=== PATIENT | female | born 1950 | race Caucasian/White ===

== ENCOUNTER 2021-06-07 05:42 | Day surgery (SDCO) | payer MEDICARE, OTHER ==
[~2021-06-07] VITALS: Ht 158.8 cm; Wt 86.2 kg
[~2021-06-07 05:42] MED LIST: ACETAMINOPHEN500 M1 PO; AMBIEN5 MG PO; APPLE CIDER VI500 MG PO; CLARITIN10 MG PO; MOTRIN600 MG PO; MYSOLINE50 MG PO; NUCYNTA50 MG PO; PEPCID AC20 MG PO; PRIMIDONE50 MG PO; PROBIOTIC1 EAC2 PO; PROPRANOLOL HCL60 MG PO; PROZAC20 MG PO; VITAMIN D5000 UNIT PO; VOLTAREN100 GM TOP; XARELTO10 MG PO; [UNRECOGNIZED DRUG - OTHER]
[2021-06-08 07:24] LABS: BASOPHIL 0.1 % (0-2); EOSINOPHIL 0.1 % (0-7); HCT 28.3 % (37.0-47.0); HGB 9.3 g/dl (12.5-16.0); LYMPHOCYTE 18.9 % (15-48); MCHC 32.9 g/dL (32.0-36.0); MCV 94.3 fL (78.0-100.0); MPV 11.5 fL (6.0-9.5); NEUTROPHIL 69.6 % (41-80); NRBC 0; PLT 225 K/uL (150-400); RDW 13.2 % (11.5-14.0); WBC 8.9 K/uL (4.0-10.5)
[2021-06-08 07:44] LABS: BUN/CREAT RATIO (CALC) 15.7 RATIO; CREATININE 0.89 mg/dL (0.51-0.95); POTASSIUM 4.2 mmol/L (3.5-5.1)
[2021-06-08] MEDS ORDERED: XARELTO10 MG PO (09:19)
[2021-06-08] MEDS ORDERED: STIMULANT LAXA1 EACH PO (09:19)
[2021-06-08] MEDS ORDERED: TAB-A-VITE TA400 MC1 PO (09:19)
[2021-06-08] MEDS ORDERED: MILK OF MA400 MG/5 M PO (09:19)
[2021-06-08] MEDS ORDERED: FEOSOL325 MG PO (09:19)
[2021-06-08] MEDS ORDERED: DULCOLAX5 MG PO (09:19)
[2021-06-08] MEDS ORDERED: PANTOPRAZOLE SO40 MG PO (09:19)
[2021-06-08] MEDS ORDERED: LAXATIVE SUPPOS10 MG PR (09:19)
--- NOTE | 2021-06-08 16:33 | NUR ---
TC FROM [facility] AT [facility]. HE ADVISED THAT THE INSURANCE HAS GIVEN THEM THE AUTH. ADVISED ALVA THAT THE HOSPITALIST HAVE ADVISED THAT RENÉE CHÁVEZ NEEDS TO COMPLETE THE DC SUMMARY ON MONDAY. ADVISED SURESH TODD THAT PT HAS BEEN ACCEPTED AT [facility]. REPORT NUMBER IS [phone] ASK FOR TRANSITIONS NURSES STATIONS FAX FOR DC SUMMARY IS [phone]. TC TO RAZA ALEXANDRO SOLITARIO [phone]. SHE WILL CONTACT THE SON,DELILAH, AND ADVISED HIM THAT HE NEEDS TO TRANSPORT HIS MOTHER TO THE FACILITY TOMORROW.
[2021-06-09 05:58] LABS: BASOPHIL 0.3 % (0-2); EOSINOPHIL 0.5 % (0-7); HCT 25.3 % (37.0-47.0); HGB 8.6 g/dl (12.5-16.0); LYMPHOCYTE 14.4 % (15-48); MCH 31.3 pg (25.0-31.0); MONOCYTE 11.2 % (0-12); MPV 11.3 fL (6.0-9.5); NEUTROPHIL 73.2 % (41-80); NRBC 0; PLT 212 K/uL (150-400); RBC 2.75 M/uL (4.20-5.40); RDW 13.1 % (11.5-14.0); WBC 7.7 K/uL (4.0-10.5)
[2021-06-09 06:14] LABS: BUN/CREAT RATIO (CALC) 19.4 RATIO; CREATININE 0.67 mg/dL (0.51-0.95); POTASSIUM 3.8 mmol/L (3.5-5.1)
[2021-06-09] MEDS ORDERED: NORCO 5-325 TA1 EACH PO (08:29)
--- NOTE | 2021-06-09 11:21 | NUR ---
PT D/C TO [facility] THIS DATE. HER SON DELILAH, TRANSPORTED PT TO [facility].
== END 2021-06-09 11:18 ==
LOC: FAS 05:42 → FOFB 08:52 → FAS 10:30 → FMS 06-08 14:17
PROVIDERS: Nurse Practitioner Adult Health; ADMIT Legal Medicine
DX: M17.12 Unilateral primary osteoarthritis, left knee (principal); Z88.5 Allergy status to narcotic agent; Z88.6 Allergy status to analgesic agent; Z96.651 Presence of right artificial knee joint; E78.5 Hyperlipidemia, unspecified; F32.A Depression, unspecified; K21.9 Gastro-esophageal reflux disease without esophagitis; R25.1 Tremor, unspecified; G89.18 Other acute postprocedural pain
CPT/HCPCS: 36415; 73560; 80048; 85025; 86850; 86900; 86901; 94010; 97162; 97166; 97530-GP; 97535; C1713; C1776; G0378; J0171; J0697; J1100; J1170; J1885; J2250; J2405; J2704; J2795; J3010; J7120